=== PATIENT | female | born 1945 | race Two or more races ===

== ENCOUNTER → 2023-08-08 | Outpatient (CLI) | payer MEDICARE, OTHER ==
[~2023-08-08] MED LIST: GABA300 PO; Zofran4 MG PO
== END ==
LOC: LAB SHORT 15:35 → LAB 15:35
DX: N39.0 Urinary tract infection, site not specified (principal)
CPT/HCPCS: 87086

== ENCOUNTER 2024-02-25 13:59 | Day surgery (SDC) | payer MEDICARE, OTHER ==
[2024-02-25] MEDS ORDERED: Lactated Ringer's 1,000 ML IV SCH (14:05)
[2024-02-25 14:57] VITALS: BP 110/86
[2024-02-25] MEDS ORDERED: TRANSDERM-SCOP1 EA13 TD (15:51)
[2024-02-25] MEDS ORDERED: BACTRIM DS TAB1 EAC6 PO (15:56)
== END 2024-02-25 16:30 | disposition home or self-care (01) ==
LOC: ATC 13:59
DX: C83.30 Diffuse large B-cell lymphoma, unspecified site (principal); E86.0 Dehydration; M19.90 Unspecified osteoarthritis, unspecified site; Z88.0 Allergy status to penicillin; Z88.8 Allergy status to other drugs, medicaments and biological substances; Z79.899 Other long term (current) drug therapy
CPT/HCPCS: 96360; J1642; J7120

== ENCOUNTER 2024-02-26 05:21 | Day surgery (SDC) | payer MEDICARE, OTHER ==
[~2024-02-26 05:21] MED LIST changes: +BACTRIM DS TAB1 EAC6 PO; +TRANSDERM-SCOP1 EA13 TD
[2024-02-26] MEDS ORDERED: Lactated Ringer's 1,000 ML IV SCH (07:05)
[2024-02-26 15:20] VITALS: BP 109/75
== END 2024-02-26 16:25 | disposition home or self-care (01) ==
LOC: ATC 05:21
DX: E86.0 Dehydration (principal); C83.30 Diffuse large B-cell lymphoma, unspecified site; Z88.0 Allergy status to penicillin; Z88.8 Allergy status to other drugs, medicaments and biological substances
CPT/HCPCS: 96360; J1642; J7120